=== PATIENT | female | born 1995 | race Caucasian/White ===

== ENCOUNTER 2017-08-06 13:34 | Emergency (ER) | payer OTHER ==
[~2017-08-06] VITALS: Ht 165.1 cm; Wt 86.1 kg
[2017-08-06 13:41] VITALS: TEMP 36.9; Ht 165.1 cm; Wt 86.1 kg
[2017-08-06] MEDS ORDERED: XYLOCAINE 1%/SOD BICARB 20 ML VIAL INFIL ONE (14:00)
[2017-08-06] MEDS ORDERED: SPIR25TA PO (14:07)
[2017-08-06] MEDS ORDERED: BCPILLS PO (14:07)
[2017-08-06] MEDS ORDERED: CEPH500C PO (14:29)
[2017-08-06 14:37] VITALS: BP 144/102; PULSE 88; O2SAT 97
--- NOTE | 2017-08-06 18:45 | EMERGENCY ROOM VISIT NOTE ---
History First contact with patient: 13:45 Chief Complaint: LACERATION/CUT (SUT/DERMABOND) Stated Complaint: CUT LEFT HAND, GLASS STILL IN CUT Nursing Triage Summary: Patient to ER from [place]. Patient tripped and fell yesterday and cut her left hand. Patient suspects glass is still in the wound. Laceration to left palm. History of Present Illness The patient is a 22 year old female who presents to the Emergency Room for evaluation of a possible glass foreign body in the left hand. The patient reports that she fell yesterday afternoon around 4 PM, or approximately 22 hours ago. She believes that she fell on broken beer bottles. With persistent pain, the patient went to the [facility] urgent care center this afternoon. She had x-rays that did not show any obvious radiopaque foreign bodies. She reports that they also applied local anesthesia and try to explore the wound. They were unable to find any foreign bodies. The patient was then sent here for further evaluation. Pressure is put on the palm, she rates her discomfort a 6 out of 10. She denies any worsening pain with flexion or extension of the fingers. She denies any paresthesias or numbness. The patient is right-hand dominant, and tetanus immunization is up-to-date as she received a booster at the [facility] urgent care center Review of Systems 10 system review was performed and was negative except for pertinent positives and negatives as indicated in history of present illness Past Medical/Surgical History Medical Problems: (1) No significant past medical history Surgical Problems: (1) No history of previous surgery Family History Unremarkable Social History Smoking Status: Never Smoker Alcohol Use: occasionally Marital Status: single Occupation Status: [employer] student Current/Historical Medications Scheduled Control Pills ( Control Pills), 1 TAB PO DAILY Cephalexin Monohydrate (Keflex), 500 MG PO TID Spironolactone (Aldactone), 1 TAB PO DAILY Physical Exam Vital Signs Date Time Temp Pulse Resp B/P (MAP) Pulse Ox O2 Delivery O2 Flow Rate FiO2 08/06/17 14:37 88 18 144/102 97 08/06/17 13:41 36.9 88 18 144/102 97 Room Air Physical Exam CONSTITUTIONAL: Healthy and well nourished. Alert and oriented X 3 with positive affect. Patient does not appear in any acute distress. MUSCULOSKELETAL: Examination of the left hand shows a 1 cm laceration between the thenar and hypothenar eminence. No active bleeding noted. Patient is able to flex and extend the fingers and wrist without discomfort. Distal pulses/ capillary refill is less than 2 seconds. INTEGUMENTARY: No rash or other significant dermatologic conditions noted. NEUROLOGIC: Left hand and fingers are sensory intact. Medical Decision & Procedures Procedure Wound probing and irrigation was performed under local anesthesia after receiving verbal consent from the patient. Using buffered 1% lidocaine without epinephrine, good local anesthesia was administered. The peripheral tissue was cleansed with iodine. I thoroughly probed the wound using a 27-gauge needle throughout the underlying subcutaneous tissue and dermis. No foreign body was located. The wound was then reirrigated with normal saline, then approximated using a single simple interrupted suture. A bacitracin dressing was applied. ED Course Patient history and physical exam were performed. Nurse's notes were reviewed. Vital signs were reviewed, showing an elevated blood pressure in triage. Wound evaluation, irrigation, probing and approximation was performed under local anesthesia. I was unable to locate in the underlying debris. I also reviewed x-rays that the patient brought from the [facility] urgent [place]. I was also unable to visualize any radiopaque foreign body. There was no other fractures or dislocations noted. The patient was provided contact information for Dr. Odonnell, hand surgeon should her discomfort persist. She was instructed to return to the emergency department for any signs of infection. I did elect to treat the patient with Keflex antibiotics to reduce risk for infection. The patient was encouraged to intermittently apply ice for swelling. And ibuprofen and Tylenol as needed for pain. The patient was happy with plan of care, voiced understanding of all discharge instructions, and denied any pain at the time of discharge. Medical Decision Blood Pressure Screening Patient's blood pressure: Elevated blood pressure Blood pressure disposition: Elevated BP felt to be situational Impression Primary Impression: Laceration of left hand Departure Information Prescriptions Cephalexin Monohydrate (Keflex) 500 Mg Cap 500 MG PO TID for 7 Days, #21 CAP Prov: David Fair PA 08/06/17 Referrals No Doctor, Assigned (PCP) Patient Instructions My [facility] Problem Qualifiers Primary Impression: Laceration of left hand Encounter type: initial encounter Foreign body presence: without foreign body Qualified Codes: S61.412A - Laceration without foreign body of left hand , initial encounter
== END 2017-08-06 14:37 | disposition home or self-care (01) ==
LOC: C.EDB 13:36 → C.EDD 14:37
DX: S61.412A Laceration without foreign body of left hand, initial encounter (principal); W25.XXXA Contact with sharp glass, initial encounter